=== PATIENT | female | born 1960 | race Caucasian/White ===

== ENCOUNTER 2021-09-30 14:17 | Observation (INO) | payer OTHER ==
[~2021-09-30] VITALS: Ht 157.5 cm; Wt 85.0 kg
--- NOTE | 2021-09-30 14:17 | NUR ---
PATIENT ESCORTED TO ED VIA EMS. PATIENT ARRIVED IN NO ACUTE DISTRESS. ALERT AND ORIENTED. PATIENT TRANSFERRED TO STRETCHER AND CONNECTED TO MONITOR. EKG COMPLETED. MD NOTIFIED OF PATIENT STATUS.
[2021-09-30 14:49] LABS: HEMATOCRIT 49.7 % (37.0-47.0); HEMOGLOBIN 16.2 g/dl (12.0-16.0); IMMATURE GRANULOCYTES 0.2 % (0.0-5.0); MEAN CELL VOLUME 89.1 fL CALC (80.0-100.0); MEAN CORPUSCULAR HGB CONC 32.6 g/dL CAL (32.0-36.0); NEUT# 3.42 thou/uL (2.00-7.15); RED BLOOD COUNT 5.58 mill/uL (4.20-5.60); RED CELL DISTRI WIDTH 12.8 % (11.5-15.5)
[2021-09-30 15:00] LABS: ALBUMIN 4.5 g/dL (3.2-5.0); ALKALINE PHOSPHATASE 128 u/l (38-126); ANION GAP 12 (6-22 (CALC)); BUN 12 mg/dL (8-23); BUN/CREATININE RATIO 19 (12-20 (CALC)); CARBON DIOXIDE 28 mmol/l (22-30); CHLORIDE 104 mmol/l (95-108); CREATININE 0.6 mg/dL (0.5-1.0); GFR > 60 ML/MIN (>=60 (CALC)); GFR FOR AFR.AMER. > 60 ML/MIN (>=60 (CALC)); POTASSIUM 3.8 mmol/l (3.5-5.1); SGOT/AST 40 u/l (9-36); SODIUM 140 mmol/l (137-146); TOTAL PROTEIN 8.4 g/dL (6.3-8.2)
[2021-09-30 15:01] LABS: BILIRUBIN, TOTAL 0.8 mg/dL (0.0-1.4)
--- NOTE | 2021-09-30 15:40 | NUR ---
MD AT BEDSIDE TO DISCUSS RESULTS AND POC
--- NOTE | 2021-09-30 17:08 | NUR ---
RESTING ON STRETCHER, RESPS EVEN AND UNLABORED ON ROOM AIR, VSS, MONITORS ATTACHED. AT BEDSIDE.
--- NOTE | 2021-09-30 18:09 | NUR ---
REPORT CALLED TO THEODORE BROWNE.
--- NOTE | 2021-09-30 18:30 | NUR ---
PT ARRIVED TO UNIT AT 1829 VIA WHEELCHAIR WITH ER STAFF; ALERT AND ORIENTED X 3. AMBULATORY TO BED WITH STEADY GAIT. DENIES PAIN. RESPIRATIONS EVEN AND UNLABORED ON ROOM AIR. DENIES SOB AND NAUSEA. KEY CARRIER IN PLACE; VERIFIED WITH ER MONTIOR TECH; CURRENTLY SINUS RHYTHM WITH HEART RATE IN THE 80'S. ORIENTED TO ROOM AND CALL LIGHT SYSTEM. SNACK AND DRINK PROVIDED. EMS SITE TO RAC APPEARS HEALTHY AND FLUSHES. PLAN OF CARE DISCUSSED. PT ENCOURAGED TO VERBALIZE CONCERNS; STATES UNDERSTANDING. SAFETY MEASURES IN PLACE; CALL LIGHT WITHIN REACH.
--- NOTE | 2021-09-30 18:30 | NUR ---
TO MED SURG VIA WHEELCHAIR, TELE MONITOR IN PLACE
[2021-09-30 18:35] VITALS: BP 144/89
--- NOTE | 2021-09-30 20:00 | NUR ---
SCHEDULED MEDICATIONS AND PRN MEDICATION ADMINISTERED, SEE E-MAR. PT DENIES ANY NEEDS AT THIS TIME. PLAN OF CARE REVIEWED, PT DENIES QUESTIONS, VERBALIZES UNDERSTANDING. ITEMS WITHIN REACH, BED LOCKED IN LOW POSITION W/ BEDRAILS UP X2. CALL MONROY WITHIN REACH, AGREES TO CALL PRN.
--- NOTE | 2021-10-01 | NUR ---
PT LAYING IN BED WITH EYES CLOSED, APPEARS TO BE SLEEPING, APPEARS COMFORTABLE AND IN NO DISTRESS. RESPIRATIONS REGULAR AND UNLABORED. ITEMS REMAIN WITHIN REACH, CALL MONROY REMAINS WITHIN REACH. BED REMAINS LOCKED AND IN LOW POSITION WITH BEDRAILS UP X2. WILL CONTINUE TO MONITOR.
[2021-10-01 00:10] VITALS: BP 131/77
[2021-10-01 04:29] VITALS: BP 124/77
[2021-10-01 06:10] LABS: HEMATOCRIT 46.8 % (37.0-47.0); HEMOGLOBIN 15.6 g/dl (12.0-16.0); MEAN CELL VOLUME 88.6 fL CALC (80.0-100.0); MEAN CORPUSCULAR HGB 29.5 pG CALC (26.0-32.0); MEAN CORPUSCULAR HGB CONC 33.3 g/dL CAL (32.0-36.0); RED BLOOD COUNT 5.28 mill/uL (4.20-5.60)
[2021-10-01 06:28] LABS: ANION GAP 10 (6-22 (CALC)); BUN 10 mg/dL (8-23); BUN/CREATININE RATIO 17 (12-20 (CALC)); CALCULATED LDLCHOLESTEROL 149 mg/dL (62-129 (CALC)); CARBON DIOXIDE 27 mmol/l (22-30); CHLORIDE 105 mmol/l (95-108); CHOLESTEROL HDL RATIO 4.3 (<4.4 (CALC)); CREATININE 0.6 mg/dL (0.5-1.0); GFR > 60 ML/MIN (>=60 (CALC)); GFR FOR AFR.AMER. > 60 ML/MIN (>=60 (CALC)); HDL CHOLESTEROL 52 mg/dL (>=40); POTASSIUM 3.9 mmol/l (3.5-5.1); SODIUM 138 mmol/l (137-146); TOTAL CHOLESTEROL 223 mg/dl (0-199); TOTAL TRIGLYCERIDES 113 mg/dl (30-149); VLDL CHOLESTROL 23 mg/dl (1-41 (CALC))
--- NOTE | 2021-10-01 08:29 | NUR ---
SHIFT CHANGE REPORT, PT AWAKE ALERT AND ORIENTED RESTING IN BED, DENIES PAIN, TELE MONITOR IN PLACE, CALL MONROY IN REACH AND BED LOCKED IN LOWEST POSITION.
[2021-10-01 10:11] VITALS: BP 150/89
[2021-10-01 11:09] VITALS: BP 156/98
--- NOTE | 2021-10-01 12:18 | NUR ---
RELAXING IN BED AFTER HAVING MEAL, MEDICAL TEAM ROUNDED AND DISCUSSED PLAN OF CARE, ALL NEEDS ADDRESSED.
--- NOTE | 2021-10-01 12:42 | NUR ---
Discharge instructions given. Patient verbalizes understanding of same. Discharged in good condition via Wheelchair to Home with spouse. All belongings sent with pt.
== END 2021-10-01 12:49 | disposition home or self-care (01) | DRG 310 ==
LOC: ED 14:17 → ED-I 15:30 → ED 15:49 → MS2 15:50
PROVIDERS: Family Medicine; ADMIT Hospitalist; ATTEND Hospitalist
DX: I47.1 Supraventricular tachycardia (principal); I10 Essential (primary) hypertension; Z20.822 Contact with and (suspected) exposure to COVID-19
CPT/HCPCS: G0378; J1650

== ENCOUNTER 2024-11-15 22:04 | Emergency (ER) | payer MEDICARE ==
[~2024-11-15] VITALS: Ht 157.5 cm; Wt 78.0 kg
[~2024-11-15 22:04] MED LIST: AMLODIPINE BESYL5 MG PO; ATORVASTATIN CA10 MG PO; COZAAR50 MG PO
[2024-11-15] MEDS ORDERED: SODIUM CHLORIDE 0.9% 1,000 ML IV STA (22:26)
[2024-11-15] MEDS ORDERED: Pantoprazole Sodium 40 MG VIAL (Protonix) IV STA (22:26)
[2024-11-15] MEDS ORDERED: PROMETHAZINE HCL 25 MG/ML AMP IV ONE (22:30)
[2024-11-15] MEDS ORDERED: KETOROLAC TROMETHAMINE 30 MG/ML SDV IV ONE (22:30)
[2024-11-15 22:40] VITALS: BP 150/84
[2024-11-15 22:43] LABS: BASO% 0.4 % (0-3); EOS% 1.7 % (0-8); HEMATOCRIT 45.5 % (37.0-47.0); IMMATURE GRANULOCYTES 0.2 % (0.0-5.0); MEAN CELL VOLUME 89.7 fL CALC (80.0-100.0); MEAN CORPUSCULAR HGB 29.6 pG CALC (26.0-32.0); MONO% 7.2 % (2-13); NEUT# 7.21 thou/uL (2.00-7.15); NEUT% 72.5 % (42-76); RED BLOOD COUNT 5.07 mill/uL (4.20-5.60); RED CELL DISTRI WIDTH 12.1 % (11.5-15.5)
[2024-11-15 22:47] LABS: URINE BILIRUBIN - DIPSTICK Negative (NEGATIVE); URINE BLOOD DIPSTICK Negative (NEGATIVE); URINE GLUCOSE - DIPSTICK Negative (NEGATIVE); URINE KETONE Negative (NEGATIVE); URINE LEUK ESTERASE Negative (NEGATIVE); URINE NITRITE - DIPSTICK Negative (Negative); URINE PROTEIN - DIPSTICK Negative (NEG-TRACE); URINE SPECIFIC GRAVITY 1.025; URINE UROBILINOGEN - DIPSTICK 0.2 E.U./dL (0.2)
[2024-11-15 22:48] LABS: URINE COLOR Yellow
[2024-11-15 22:57] LABS: ALBUMIN 4.9 g/dL (3.2-5.0); BILIRUBIN, TOTAL 0.9 mg/dL (0.02-1.3); CREATININE 0.6 mg/dL (0.5-1.0); POTASSIUM 3.7 mmol/l (3.5-5.1); TOTAL PROTEIN 8.5 g/dL (6.3-8.2)
[2024-11-15 23:00] VITALS: BP 151/85
[2024-11-16] VITALS: BP 136/80
[2024-11-16] MEDS ORDERED: TYLENOL # 31 TA1 PO (00:25)
[2024-11-16 00:36] VITALS: BP 136/80
== END 2024-11-16 00:36 | disposition home or self-care (01) ==
LOC: ED 22:04
PROVIDERS: Family Medicine
DX: K81.9 Cholecystitis, unspecified (principal); K82.1 Hydrops of gallbladder; I10 Essential (primary) hypertension
CPT/HCPCS: J2470; J2550; Q9967

== ENCOUNTER 2024-11-29 07:45 | Observation (INO) | payer MEDICARE ==
[~2024-11-29] VITALS: Ht 157.5 cm; Wt 77.8 kg
[2024-11-29] VITALS (15 sets, daily range): BP systolic 119–156; BP diastolic 67–83
[~2024-11-29 07:45] MED LIST changes: +TYLENOL # 31 TA1 PO
--- NOTE | 2024-11-29 07:50 | NUR ---
PATIENT TO ER ROOM 6 WITH STEADY GAIT. ACCOMPANIED BY SPOUSE.
[2024-11-29] MEDS ORDERED: SODIUM CHLORIDE 0.9% 1,000 ML IV STA (08:09)
[2024-11-29] MEDS ORDERED: ONDANSETRON HCl 4 MG/2 ML SDV IV STA (08:09)
[2024-11-29] MEDS ORDERED: PROPOFOL 200 MG/20 ML VIAL IV ONE (08:18)
[2024-11-29] MEDS ORDERED: SUGAMMADEX SODIUM 200 MG/2 ML SDV IV ONE (08:18)
[2024-11-29] MEDS ORDERED: LIDOCAINE HCL 2% 2ML SDV IV ONE (08:18)
[2024-11-29] MEDS ORDERED: KETOROLAC TROMETHAMINE 30 MG/ML SDV IV ONE ×2 (08:18→08:20)
[2024-11-29] MEDS ORDERED: ROCURONIUM BROMIDE 10 MG/ML 5 ML VIAL IV ONE (08:18)
[2024-11-29 08:32] LABS: BASO% 0.2 % (0-3); EOS% 0.1 % (0-8); HEMATOCRIT 46.1 % (37.0-47.0); HEMOGLOBIN 15.3 g/dl (12.0-16.0); IMMATURE GRANULOCYTES 0.2 % (0.0-5.0); LYMPH% 8.2 % (15-41); MEAN CELL VOLUME 87.3 fL CALC (80.0-100.0); MEAN CORPUSCULAR HGB CONC 33.2 g/dL CAL (32.0-36.0); MONO% 7.3 % (2-13); NEUT# 10.27 thou/uL (2.00-7.15); RED BLOOD COUNT 5.28 mill/uL (4.20-5.60); RED CELL DISTRI WIDTH 11.9 % (11.5-15.5); URINE BLOOD DIPSTICK Trace-intact (NEGATIVE); URINE GLUCOSE - DIPSTICK Negative (NEGATIVE); URINE KETONE 40 mg/dL (NEGATIVE); URINE LEUK ESTERASE Negative (NEGATIVE); URINE NITRITE - DIPSTICK Negative (Negative); URINE PH 5.5 (4.5-8.0); URINE PROTEIN - DIPSTICK 100 mg/dL (NEG-TRACE); URINE SPECIFIC GRAVITY >=1.030
[2024-11-29 08:33] LABS: URINE COLOR Yellow
[2024-11-29 08:41] LABS: URINE BACTERIA RARE hpf; URINE MUCUS MODERATE hpf (NONE-FEW); URINE RBC 0-2 RBC/hpf (0-5); URINE SQUAMOUS EPITHELIAL CELL FEW EPI/hpf (0-FEW); URINE WBC 0-2 WBC/hpf (0-5)
[2024-11-29 08:49] LABS: ALBUMIN 4.8 g/dL (3.2-5.0); BILIRUBIN, TOTAL 1.1 mg/dL (0.02-1.3); CREATININE 0.6 mg/dL (0.5-1.0); POTASSIUM 3.8 mmol/l (3.5-5.1); TOTAL PROTEIN 8.2 g/dL (6.3-8.2)
--- NOTE | 2024-11-29 09:17 | NUR ---
Reassessment of patient completed. No distress noted.
[2024-11-29] MEDS ORDERED: PIPERACILLIN Sodium-Tazobactam 4.5 GM in SODIUM CHLORIDE 0.9% 100 ML IV ONE (09:20)
[2024-11-29] MEDS ORDERED: HYDROmorphone HCL 2 MG/AMP IV PRN (09:40)
--- NOTE | 2024-11-29 09:54 | NUR ---
PT REPORT GIVEN TO YOGESH IN OR
--- NOTE | 2024-11-29 09:59 | NUR ---
PT TAKEN TO OR
--- NOTE | 2024-11-29 10:03 | NUR ---
PT TO OR WITH OR STAFF, PT TO BE ADMITTED TO MED SURG FOLLOWING PROCEDURE
[2024-11-29] MEDS ORDERED: FAMOTIDINE 10MG/ML 2ML SDV IV ONE (10:07)
[2024-11-29] MEDS ORDERED: SODIUM CHLORIDE 1,000 ML BTL IR ONE (10:13)
[2024-11-29] MEDS ORDERED: LIDOcaine HCl 1% (Local Anesth.) 20 ML VIAL ONE (10:13)
[2024-11-29] MEDS ORDERED: STERILE WATER FOR IRRIGATION 500 ML BTL IR ONE (10:13)
[2024-11-29] MEDS ORDERED: SODIUM CHLORIDE 0.9% 1,000 ML IV ONE (10:55)
[2024-11-29] MEDS ORDERED: KETOROLAC TROMETHAMINE 15 MG/ML SDV IV SCH ×2 (12:00→18:00)
[2024-11-29] MEDS ORDERED: ACETAMINOPHEN 100 ML IV ONE (12:34)
[2024-11-29] MEDS ORDERED: SODIUM CHLORIDE 0.9% 2,000 ML IV ONE (12:41)
[2024-11-29] MEDS ORDERED: HYDROmorphone HCL 2 MG/AMP ONE (12:43)
[2024-11-29] MEDS ORDERED: SODIUM CHLORIDE 0.9% 1,000 ML IV PRN (14:35)
[2024-11-29] MEDS ORDERED: PIPERACILLIN Sodium-Tazobactam 3.375 GM in SODIUM CHLORIDE 0.9% 100 ML IV SCH (15:00)
[2024-11-29] MEDS ORDERED: amLODIPine BESYLATE 5 MG/TAB PO SCH (21:00)
[2024-11-30 04:49] VITALS: BP 126/85; BP 161/66
[2024-11-30 05:36] VITALS: BP 112/59
[2024-11-30 07:20] VITALS: BP 112/59
--- NOTE | 2024-11-30 08:00 | NUR ---
PT IS FOUND TO BE RESTING COMFORTABLY IN BED. PT IS A&OX4; STABLE. PT IS ON ROOM AIR. LUING SOUNDS ARE CLEAR AND BOWEL SOUNDS ARE ACTIVE. PT CAN MOVE ALL EXTREMITES; SBA OOB. PLAN OF CARE WAS REVIEWED; NO FURTHER QUESTIONS AT THIS TIME. CALL LIGHT IS WITHIN REACH. INCENTIVE SPIROMETER INSTRUCTIONS WERE REVIEWED.
[2024-11-30 08:40] LABS: BILIRUBIN, TOTAL 0.8 mg/dL (0.02-1.3)
[2024-11-30] MEDS ORDERED: SODIUM CHLORIDE 0.9% 1,000 ML IV PRN (08:40)
[2024-11-30] MEDS ORDERED: oxyCODONE 5MG/ ACETAMINOPHEN 325MG TAB PO PRN (08:40)
[2024-11-30 09:00] LABS: ALBUMIN 3.5 g/dL (3.2-5.0); TOTAL PROTEIN 6.2 g/dL (6.3-8.2)
[2024-11-30] MEDS ORDERED: PERCOCET 5/325M1 TAB PO (09:11)
[2024-11-30 09:13] LABS: BASO% 0.2 % (0-3); HEMOGLOBIN 13.4 g/dl (12.0-16.0); IMMATURE GRANULOCYTES 0.2 % (0.0-5.0); LYMPH% 7.3 % (15-41); MEAN CELL VOLUME 87.3 fL CALC (80.0-100.0); MEAN CORPUSCULAR HGB 29.5 pG CALC (26.0-32.0); MEAN CORPUSCULAR HGB CONC 33.8 g/dL CAL (32.0-36.0); MONO% 8.3 % (2-13); NEUT# 8.76 thou/uL (2.00-7.15); RED BLOOD COUNT 4.55 mill/uL (4.20-5.60); RED CELL DISTRI WIDTH 12.1 % (11.5-15.5)
[2024-11-30 09:23] LABS: HEMATOCRIT 39.7 % (37.0-47.0)
--- NOTE | 2024-11-30 09:53 | NUR ---
PT INSTRUCTED ON USE AND FREQUENCY OF INCENTIVE SPIROMETER, PT PERFORMED PROPERLY X 5, ACHEIVED MAX VOLUME OF 1000, I.S. LEFT AT BEDSIDE
[2024-11-30 11:52] LABS: CREATININE 0.5 mg/dL (0.5-1.0); POTASSIUM 3.9 mmol/l (3.5-5.1)
[2024-11-30] MEDS ORDERED: ONDANSETRON HCl 4 MG/2 ML SDV IV PRN (12:00)
--- NOTE | 2024-11-30 12:00 | NUR ---
Discharge instructions given. Patient verbalizes understanding of same. Discharged in stable condition via Wheelchair to Home with spouse. All belongings sent with pt. IV WAS REMOVED; NO TELE TO RETURN.
--- NOTE | 2024-12-01 13:29 | NUR ---
Discharge follow up call completed 12/01/24. Patient states she is still having postoperative discomfort but is doing well otherwise. Patient states pain medication was prescribed if she needs it but it has not been necessary. Patient has a follow up appointment with her surgeon in one week. No needs or concerns verbalized at this time.
== END 2024-11-30 12:00 | disposition home or self-care (01) ==
LOC: ED 07:45 → ED-I 09:15 → ED 09:38 → ORM 09:38 → MS2 11:42
PROVIDERS: Family Medicine; ADMIT Surgery; ATTEND Surgery
PROC: 0FT44ZZ Resection of Gallbladder, Percutaneous Endoscopic Approach (ICD-10-PCS; principal; 2024-11-29)
DX: K80.12 Calculus of gallbladder with acute and chronic cholecystitis without obstruction (principal); I10 Essential (primary) hypertension
CPT/HCPCS: J0131; J1100; J1171; J1885; J2405; J2543